=== PATIENT | female | born 1965 | race Two or more races ===

== ENCOUNTER 2016-12-04 08:44 | Day surgery (SDC) | payer OTHER ==
[~2016-12-04] VITALS: Ht 160 cm; Wt 102.6 kg
[2016-12-04 09:31] VITALS: Ht 160 cm; Wt 102.6 kg
[2016-12-04] MEDS ORDERED: PROPOFOL 40 ML ONE (09:40)
[2016-12-04] MEDS ORDERED: LIDOCAINE 2% (SDV) 5 ML INJ ONE (09:40)
[2016-12-04] MEDS ORDERED: NO HOME MEDS (09:44)
[2016-12-04 10:02] VITALS: BP 156/71; PULSE 74; RESP 14
[2016-12-04 10:50] VITALS: BP 114/65; RESP 20
--- NOTE | 2016-12-07 08:19 | GILP ---
DATE OF PROCEDURE: PROCEDURE: Colonoscopy. PREOPERATIVE DIAGNOSIS: Screening colonoscopy to rule out colon polyps. POSTOPERATIVE DIAGNOSES: 1. Occasional diverticula noted. 2. The rest of the colon appeared normal. DESCRIPTION OF PROCEDURE: After informed written consent was obtained, the patient was asked to lie on the left lateral side. Intravenous anesthesia was given by the anesthesiologist, Dr. Christensen. Whe n the patient became somnolent, the Olympus video colonoscope was introduced into the rectum and the scope was advanced all the way to the cecum. A few diverticula were found to be noted all along th e colon, but they are small in size, not bleeding. No polyps, no carcinoma of the colon noted. The endoscope at this time was withdrawn. On the way out, retroflexion was performed. Skin tags were noted. No significant hemorrhoids on the way out, no significant hemorrhoids noted, and the procedu re was terminated. PLAN: Recommend a colonoscopy in 10 years. Dictated By: URSULA WILSON/KYLE Conf#: [id number] DID#: [id number]
== END 2016-12-04 13:11 | disposition home or self-care (01) ==
LOC: GIL 08:44
PROVIDERS: ATTEND Internal Medicine Gastroenterology
DX: Z12.11 Encounter for screening for malignant neoplasm of colon (principal); K57.90 Diverticulosis of intestine, part unspecified, without perforation or abscess without bleeding
CPT/HCPCS: 45378; Z7610